=== PATIENT | male | born 1955 | race Caucasian/White ===

== ENCOUNTER 2016-04-26 21:25 | Emergency (ER) | payer OTHER ==
--- NOTE | 2016-04-27 07:15 | RAD ---
RIGHT ANKLE 3 VIEWS HISTORY: Status post fall with right ankle pain COMPARISONS: None. TECHNIQUE: Frontal, lateral, and oblique views of the right ankle. ALIGNMENT: Grossly unremarkable. Ankle mortise intact. FRACTURE: No displaced acute fracture. Evidence of remote lateral malleolar avulsion injury. DEGENERATIVE CHANGE: Tibiotalar osteophyte formation of moderate degree. Posterior and plantar calcaneal enthesophytes. SOFT TISSUES: Grossly unremarkable. No joint effusion. RADIOOPAQUE FOREIGN BODY: None. IMPRESSION: No gross malalignment or displaced acute fracture noted. Moderate degenerative change.
--- NOTE | 2016-04-27 07:16 | RAD ---
RIGHT FOOT 3 VIEWS HISTORY: Status post fall with right foot pain. COMPARISONS: None. TECHNIQUE: Frontal, lateral, and oblique views of the right foot. ALIGNMENT: Grossly unremarkable. FRACTURE: Deformity suggests remote injury of the fifth metatarsal. No displaced acute fracture. DEGENERATIVE CHANGE: Early degeneration of interphalangeal joints. Tibiotalar osteophytes with calcaneal enthesophyte formation of moderate degree. SOFT TISSUES: Grossly unremarkable. RADIOOPAQUE FOREIGN BODY: None. IMPRESSION: No gross malalignment or displaced acute fracture noted. Mild to moderate degenerative change. Findings suggest remote injury of the fifth metatarsal.
== END 2016-04-26 22:19 | disposition home or self-care (01) ==
LOC: ED 21:25
DX: S99.921A Unspecified injury of right foot, initial encounter (principal); F17.210 Nicotine dependence, cigarettes, uncomplicated; W01.0XXA Fall on same level from slipping, tripping and stumbling without subsequent striking against object, initial encounter; Y92.9 Unspecified place or not applicable